=== PATIENT | male | born 1960 | race Caucasian/White ===

== ENCOUNTER 2024-02-26 14:23 | Emergency (ER) | payer OTHER ==
[~2024-02-26] VITALS: Ht 185.4 cm; Wt 117.9 kg
[2024-02-26 15:13] VITALS: BP 144/90; O2SAT 98
[2024-02-26] MEDS ORDERED: KAPSPARGO SPRIN25 MG PO (15:14)
[2024-02-26] MEDS ORDERED: ROSUVASTATIN CA10 MG PO (15:15)
[2024-02-26] MEDS ORDERED: WARFARIN SODIUM1 MG PO (15:15)
[2024-02-26 16:26] LABS: INR 3.43
[2024-02-26 16:41] LABS: PARTIAL THROMBOPLASTIN TIME 40.7 SECONDS (22.0-34.0); PROTHROMBIN TIME 34.1 SECONDS (9.0-11.5)
== END 2024-02-26 17:42 | disposition home or self-care (01) ==
LOC: ER 14:23
PROVIDERS: Emergency Medicine
DX: S09.8XXA Other specified injuries of head, initial encounter (principal); W19.XXXA Unspecified fall, initial encounter; Y93.89 Activity, other specified; Y92.89 Other specified places as the place of occurrence of the external cause; Y99.8 Other external cause status